=== PATIENT | male | born 1955 | race African-American/Black ===

== ENCOUNTER 2018-04-08 05:06 | Observation (INO) | payer OTHER ==
[~2018-04-08] VITALS: Ht 175.3 cm; Wt 90.3 kg
[2018-04-08] MEDS ORDERED: LISINOPRIL10 M1 PO (05:57)
[2018-04-08] MEDS ORDERED: ATORVASTATIN CA40 M1 PO (05:57)
[2018-04-08] MEDS ORDERED: GLIMEPIRIDE2 MG PO (05:57)
[2018-04-08] MEDS ORDERED: METFORMIN HCL500 M3 PO (05:57)
--- NOTE | 2018-04-08 06:12 | ED GI/GU/ABDOMINAL COMPLAINT ---
History of Present Illness General Chief Complaint: General Adult Stated Complaint: "SWALLOWED SOMTHING DIDNT GO DOWN RIGHT ABD PAIN" Source: patient Exam Limitations: no limitations Vital Signs & Intake/Output Vital Signs & Intake/Output Vital Signs Date Time Temp Pulse Resp B/P B/P Pulse O2 O2 Flow FiO2 Mean Ox Delivery Rate 04/08 838 97.7 64 20 110/71 99 Room Air 04/08 0623 98.3 66 18 123/71 98 Room Air 04/08 0525 98.2 84 18 109/76 99 Room Air Allergies Coded Allergies: No Known Allergies (04/08/18) Reconcile Medications Atorvastatin Calcium 40 MG TABLET 1 TAB PO DAILY HIGH CHOLESTEROL (Reported) Glimepiride 2 MG TABLET 1 TAB PO DAILY DIABETES (Reported) Lisinopril 10 MG TABLET 1 TAB PO DAILY HYPERTENSION (Reported) Metformin HCl 500 MG TABLET 1 TAB PO BID DIABETES (Reported) Triage Note: PT COMING IN FROM HOME C/O LLQ ABD PAIN. PT STATES HE WAS EATING BREAKFAST MONDAY MORNING AND HE FELT LIKE HE SWALLOWED METAL. PT STATES A COUPLE HOURS AFTER HE ATE BREAKFAST HE STARTED TO HAVE LLQ PAIN. PT ATE GRITS, EGGS, ALMANZA, AND TOAST FOR BREAKFAST. PT DENIES N/V/D. PT DENIES ANY OTHER COMPLAINTS. Triage Nurses Notes Reviewed? yes HPI: Patient presents for evaluation of left-sided abdominal pain that began after swallowing grits yesterday morning. Patient states he felt something "like metal" going down. His pain began about 2 hours after eating. Since then he has had an intermittent sharp pain at a 2-3/10 in intensity. There has been no associated fever, cold symptoms, vomiting, diarrhea or dysuria. Patient states he had one very brief transient episode of "whole body aches" Monday night but none since. He denies alcohol use. Patient denies abdominal pain currently. (Tonya MONGE,Jorge Gillis) Past History Travel History Traveled to [place] past 21 day No Medical History Any Pertinent Medical History? see below for history Cardiovascular: hypertension, hyperlipidemia Endocrine: diabetes Surgical History Surgical History: non-contributory Psychosocial History What is your primary language Kyrgyz Tobacco Use: Quit >30 days ago Family History Hx Contributory? No (Jorge Castaneda MD) Review of Systems Review of Systems Constitutional: Reports: no symptoms. EENTM: Reports: no symptoms. Respiratory: Reports: no symptoms. Cardiovascular: Reports: no symptoms. GI: Reports: see HPI. Genitourinary: Reports: no symptoms. Musculoskeletal: Reports: no symptoms. Skin: Reports: no symptoms. Neurological/Psychological: Reports: no symptoms. Hematologic/Endocrine: Reports: no symptoms. Immunologic/Allergic: Reports: no symptoms. All Other Systems: Reviewed and Negative (Tonya MONGE,Jorge Gillis) Physical Exam Physical Exam Gastrointestinal: SEE BELOW Comments: Gen.: Well-nourished, well-developed, no acute respiratory distress. Head: Normocephalic, atraumatic. Eyes: Normal inspection bilaterally Ears: Normal inspection bilaterally Nose: Normal inspection Throat/mouth : Moist mucosa Neck: Supple, full range of motion, no goiter Heart: Regular rate and rhythm, no murmurs rubs or gallops Lungs: Clear to auscultation bilaterally with normal air entry Chest: Nontender Back: Normal range of motion, no CVAT on the left side Abdomen: Soft, nontender, nondistended, normal bowel sounds Extremities: Normal range of motion grossly, equal radial pulses, no cyanosis clubbing or edema Neurologic: Cranial nerves grossly intact, speech is clear Skin: warm and dry Psychiatric: Calm, cooperative, no apparent delusions or hallucinations Core Measures ACS in differential dx? No Sepsis Present: No Sepsis Focused Exam Completed? No (Tonya MONGE,Jorge Gillis) Progress Differential Diagnosis: bowel obstruction, diverticulitis, gastritis, PUD/GERD, perforated viscous, ingested foreign body Plan of Care: Orders Procedure Date/time Status Nothing by Mouth 04/08 L Active URINALYSIS 04/08 612 Complete LIPASE 04/08 06 Complete COMPREHENSIVE METABOLIC PANEL 04/08 612 Complete CBC WITHOUT DIFFERENTIAL 04/08 612 Complete Current Medications Sig/Jeremiah Start time Last Medication Dose Stop Time Status Admin Sodium Chloride 1,000 ML Q6H 04/08 1030 AC (Normal Saline 0.9%) Laboratory Tests 04/08/18 0624: Urinalysis LIGHT H, Urine Color YEL, Urine Clarity CLEAR, Urine pH 6.0, Ur Specific [employer] >= 1.030, Urine Protein 30 H, Urine Ketones TRACE H, Urine Nitrite NEG, Urine Bilirubin NEG, Urine Urobilinogen 1.0, Ur Leukocyte Esterase NEG, Ur Microscopic SEDIMENT EXAMINED, Urine RBC 5-10 H, Urine WBC 3-5 H, Ur Epithelial Cells FEW, Urine Bacteria MANY H, Urine Mucus MANY H, Urine Hemoglobin TRACE-INTACT H, Urine Glucose 100 H 04/08/18 0620: Anion Gap 17 H, Estimated GFR 56 L, BUN/Creatinine Ratio 22.3, Glucose 119 H, Calcium 10.0, Total Bilirubin 1.0, AST 19, ALT 31, Alkaline Phosphatase 52, Total Protein 8.0, Albumin 4.4, Globulin 3.6, Albumin/Globulin Ratio 1.2, Lipase 133, CBC w Diff NO MAN DIFF REQ, RBC 4.18 L, MCV 96.0 H, MCH 32.1 H, MCHC 33.4, RDW 13.1, MPV 8.7, Gran % 64.3, Lymphocytes % 27.5, Monocytes % 6.5, Eosinophils % 1.3, Basophils % 0.4, Absolute Granulocytes 4.2, Absolute Lymphocytes 1.8, Absolute Monocytes 0.4, Absolute Eosinophils 0.1, Absolute Basophils 0 Initial ED EKG: none Comments: 04/08/2018 7:15:31 AM 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 (Tonya MONGE,Jorge Gillis) Comments: 5577 CT scan report discussed with the radiologist. He tells me that the patient has a jejunal metallic foreign body. Since the patient has pain at the site we will get a surgical consult. There were no obvious signs of perforation at this moment. 0852 examination of the patient shows left lower quadrant tenderness with a sharp foreign body seen on CT scan. I have made surgical POA about the case. Pending for the surgeon to call back. The patient will need surgical admission. 1027 surgery to accept the patient for observation. Patient will be kept n.p.o. (Mychal Franco MD) Departure Departure Disposition: STILL A PATIENT Condition: Stable Referrals: Bruce Rosales MD (PCP/Family) Departure Forms: Customer Survey General Discharge Information (Jorge Castaneda MD) Departure Clinical Impression Primary Impression: Abdominal pain Secondary Impressions: Foreign body (Mychal Franco MD)
[2018-04-08 06:30] LABS: ABSOLUTE BASOPHIL COUNT 0 /CUMM (0.0-0.2); ABSOLUTE EOSINOPHIL COUNT 0.1 /CUMM (0.0-0.7); ABSOLUTE GRANULOCYTE CT 4.2 /CUMM (1.4-6.5); ABSOLUTE LYMPH COUNT 1.8 /CUMM (1.2-3.4); ABSOLUTE MONOCYTE COUNT 0.4 /CUMM (0.10-0.60); BASOPHIL % 0.4 % (0.0-2.0); EOSINOPHIL % 1.3 % (0-5); GRANULOCYTE % 64.3 % (42.2-75.2); HEMATOCRIT 40.1 % (42-52); MEAN CORPUSCULAR HGB 32.1 PG (27.0-31.0); MEAN CORPUSCULAR HGB CONC 33.4 G/DL (33.0-37.0); MEAN PLATELET VOLUME 8.7 FL (7.4-10.4); PLATELET COUNT 205 /CUMM (130-400); RBC DISTRIBUTION WIDTH 13.1 % (11.5-14.5); RED BLOOD CELL CT 4.18 /CUMM (4.70-6.10); WHITE BLOOD CELL COUNT 6.5 /CUMM (4.8-10.8)
--- NOTE | 2018-04-08 08:23 | CT SCAN REPORT ---
EXAMINATION: CT ABDOMEN AND PELVIS WITHOUT CONTRAST CLINICAL INFORMATION: Swallowed something that felt like metal. Left upper quadrant abdominal pain. COMPARISON: None TECHNIQUE: Multidetector volumetric imaging was performed from the superior aspect of the liver through the pubic symphysis. Sagittal and coronal reformatted images were obtained on the technologist's workstation. DLP: 472 mGy-cm FINDINGS: LUNG BASES: A 4 mm pulmonary nodule is seen in the right middle lobe. Lung bases are otherwise clear. Mild gynecomastia. LIVER, GALLBLADDER, AND BILIARY TREE: A hypodense mass is seen at the dome of the right lobe of liver measuring 2.2 x 3.2 x 2.6 cm (CC by AP by TR). The gallbladder is partly contracted and unremarkable. PANCREAS: Unremarkable. SPLEEN: The spleen is not enlarged but is lobular and a hypodense lesion is seen in the spleen measuring 1.7 cm. ADRENAL GLANDS: Unremarkable. KIDNEYS AND URETERS: Multiple hypodense and hyperdense right renal lesions are seen in the parenchyma as well as located exophytically. A hyperdense lesion at the upper pole measures 1.2 cm and at the lower pole measures 2.4 cm in maximum size. These cannot be further characterized on this noncontrast study. Both kidneys have good cortical thickness without calculus or hydronephrosis. BLADDER: Unremarkable. GASTROINTESTINAL TRACT: A thin needle shaped metallic density is seen extending from one wall to the other wall of a jejunal loop in the left mid abdomen measuring 2.6 cm in length and less than 1 mm in width . The needle comes close to the serosal surface. There is no focal wall thickening or extraluminal gas/inflammatory changes. No associated pneumoperitoneum. No bowel obstruction. Moderate stool is seen in the colon. There are scattered high density punctate foci intermixed with stool also presumably ingested but incidental. The appendix is normal. ABDOMINAL WALL: Small fat-containing umbilical hernia is seen. LYMPH NODES: Normal. VASCULAR: Scattered aortic calcifications. No aneurysm. PELVIC VISCERA: The prostate is significantly enlarged measuring approximately 5.4 x 6.1 x 7.8 cm (CC by AP by TR dimensions) with a volume of approximately 130 mL the prostate is also slightly lobular on the right side with asymmetry of the right seminal vesicle compared to the left. OSSEOUS STRUCTURES: Unremarkable. IMPRESSION: 1. Thin metallic needle shaped structure is seen spanning within the lumen of mid jejunum extending from wall to wall. The needle does appear to be extend close to the serosal surface and in the presence of pain, surgical consultation is suggested. At this time there is no extraluminal gas or fluid seen. 2. Right middle lobe 4 mm pulmonary nodule. According to the updated 2017 Fleischner Society recommendations, the advised follow-up imaging for solid nodules < 6 mm is no routine follow-up for low-risk patients an optional CT at 12 months in high-risk patients. 3. Nonspecific hypodense lesions in the liver and spleen and hyper and hypodense lesions in the right kidney should be electively evaluated with a dynamic MRI of the abdomen. 4. Significant prostatomegaly with asymmetric lobulation on the right side and prominence of the right seminal vesicle, recommend elective evaluation. The findings were communicated to Dr. Franco.
--- NOTE | 2018-04-08 10:45 | History & Physical ---
See Addendum Kassi Link 04/08/18 1032: General Information and HPI MD Statement: I have seen and personally examined REY HAILE and documented this H&P. The patient is a 62 year old M who presented with a patient stated chief complaint of abdominal pain after ingesting a foreign object. Source of Information: patient Exam Limitations: no limitations History of Present Illness: Pt is a 62 yo male that presents this morning with abdominal pain. The pt states that yesterday morning he was eating instant grits with eggs and cedillo when he noticed something he had swallowed was sharp. He came to the ED this morning because of worsening abdominal pain. The pain comes and goes. At the time of exam, the pt was not in any pain. The pain in sharp in nature and does not radiate. He is unaware of what he may have swallowed. Pt denies n/v, sob, fever, chills. Allergies/Medications Allergies: Coded Allergies: No Known Allergies (04/08/18) Home Med list Atorvastatin Calcium 40 MG TABLET 1 TAB PO DAILY HIGH CHOLESTEROL (Reported) Glimepiride 2 MG TABLET 1 TAB PO DAILY DIABETES (Reported) Lisinopril 10 MG TABLET 1 TAB PO DAILY HYPERTENSION (Reported) Metformin HCl 500 MG TABLET 1 TAB PO BID DIABETES (Reported) Past History Travel History Traveled to [place] past 21 day No Medical History Cardiovascular: hypertension, hyperlipidemia Endocrine: diabetes Surgical History Surgical History: none (surgery for renal cyst), non-contributory Past Family/Social History Psychosocial History Other Social History: quit smoking in the . No daily alcohol use. Exam & Diagnostic Data Last 24 Hrs of Vital Signs/I&O Vital Signs Date Time Temp Pulse Resp B/P B/P Pulse O2 O2 Flow FiO2 Mean Ox Delivery Rate 04/08 0838 97.7 64 20 110/71 99 Room Air 04/08 0623 98.3 66 18 123/71 98 Room Air 04/08 0525 98.2 84 18 109/76 99 Room Air Intake & Output 04/08 1600 04/08 0800 04/08 0000 Intake Total 0 Output Total Balance 0 Intake, Oral 0 Patient 199 lb Weight Weight Reported by Patient Measurement Method Physical Exam General Appearance Alert, Oriented X3, Cooperative, No Acute Distress Skin Temp/Moisture Exam: Warm/Dry HEENT PERRLA, Mucous Membr. moist/pink (no teeth, wears dentures) Neck Supple Cardiovascular Regular Rate, Normal S1, Normal S2 Lungs Clear to Auscultation Abdomen Normal Bowel Sounds, Soft, No Tenderness Last 24 Hrs of Labs/Christofer: Laboratory Tests 04/08/18 0624: Urinalysis LIGHT H, Urine Color YEL, Urine Clarity CLEAR, Urine pH 6.0, Ur Specific [place] >= 1.030, Urine Protein 30 H, Urine Ketones TRACE H, Urine Nitrite NEG, Urine Bilirubin NEG, Urine Urobilinogen 1.0, Ur Leukocyte Esterase NEG, Ur Microscopic SEDIMENT EXAMINED, Urine RBC 5-10 H, Urine WBC 3-5 H, Ur Epithelial Cells FEW, Urine Bacteria MANY H, Urine Mucus MANY H, Urine Hemoglobin TRACE-INTACT H, Urine Glucose 100 H 04/08/18 0620: Anion Gap 17 H, Estimated GFR 56 L, BUN/Creatinine Ratio 22.3, Glucose 119 H, Calcium 10.0, Total Bilirubin 1.0, AST 19, ALT 31, Alkaline Phosphatase 52, Total Protein 8.0, Albumin 4.4, Globulin 3.6, Albumin/Globulin Ratio 1.2, Lipase 133, CBC w Diff NO MAN DIFF REQ, RBC 4.18 L, MCV 96.0 H, MCH 32.1 H, MCHC 33.4, RDW 13.1, MPV 8.7, Gran % 64.3, Lymphocytes % 27.5, Monocytes % 6.5, Eosinophils % 1.3, Basophils % 0.4, Absolute Granulocytes 4.2, Absolute Lymphocytes 1.8, Absolute Monocytes 0.4, Absolute Eosinophils 0.1, Absolute Basophils 0 Diagnostic Data Other Results CT of Abdomen showed: Thin metallic needle shaped structure is seen spanning within the lumen of mid jejunum extending from wall to wall. The needle does appear to be extend close to the serosal surface and in the presence of pain, surgical consultation is suggested. At this time there is no extraluminal gas or fluid seen. Assessment/Plan Assessment: Pt is a 62 male with a PMHx of htn, hyperlipidemia, and DM that presents with ingestion of foregin body and abdominal pain. As Ranked By This Provider Problem List: 1. Foreign body 2. Abdominal pain Core Measures/Misc (05/28) Acute Coronary Syndrome ACS Diagnosis: No Congestive Heart Failure Congestive Heart Failure Diagnosis No Cerebrovascular Accident CVA/TIA Diagnosis: No VTE (View Protocol) VTE Risk Factors Age>40 Sepsis (View protocol) Sepsis Present: No If YES complete Sepsis Event Note If YES complete Sepsis Event Note Newton Veliz 04/08/18 1240: Review of Systems Review of Systems Constitutional: Denies: no symptoms. Exam & Diagnostic Data Last 24 Hrs of Vital Signs/I&O Vital Signs Date Time Temp Pulse Resp B/P B/P Pulse O2 O2 Flow FiO2 Mean Ox Delivery Rate 04/08 1042 97.9 61 20 113/71 99 Room Air 04/08 0838 97.7 64 20 110/71 99 Room Air 04/08 0623 98.3 66 18 123/71 98 Room Air 04/08 0525 98.2 84 18 109/76 99 Room Air Intake & Output 04/08 1600 04/08 0800 04/08 0000 Intake Total 0 Output Total Balance 0 Intake, Oral 0 Patient 199 lb Weight Weight Reported by Patient Measurement Method Core Measures/Misc (05/28) VTE (View Protocol) No Mechanical VTE Prophylaxis d/t N/A MechProphylax Ordered No VTE Pharm Prophylaxis d/t LowRisk-No Interven Req'd Sepsis (View protocol) If YES complete Sepsis Event Note If YES complete Sepsis Event Note Resident Review Statement Other Findings: Patient seen and evaluated with PATuan. Agree with history and physical above. In short, this is a 62 yo M w/ PMHx of HTN, HLD, and DM that presents to [facility] after swolling a foreign body while eating his breakfast this morning. Patient was in his usual state of health until this morning when he was eating grits and scramble eggs he felt as though he swolled something. This was followed by immediate abdominal pain. He is unaware of what object he swolled. Of note, patient has dentues and has no teeth. He was where his dentures this mroning. His abdominal pain continued and worsened, therefore he came to the ED for evaluation. In the Ed a CT was obtained and shows a metallic needle shaped structure spanning the lumen of the mid jejunum. Upon my evaluation he does not have any abdominal pain, but states "it comes and goes". Therefore, surgery consult was obtained. After discussion with Dr. Schwartz, patient will be admitted to his service for observation *Case discussed with Dr. Schwartz - Admit for obs - NPO - Repeat abdominal xray at 6PM tonight - Serial abdominal exams
[2018-04-08 12:10] VITALS: BP 120/70
--- NOTE | 2018-04-08 12:44 | PN- General Surgery ---
Surgical Brief Attending Note Brief Attending Note: Patient seen and examined, full H and P to follow. Patient thinks ingested something yesterday, has had on and off abd pain (every couple of hours), no N/V , currently comfortable. AVSS. Abd- soft. Labs ok. CT scan - Foreign body in mid jejunum, sitting transversly and spanning the bowel. Conservative management for now, NPO/IVF, AXR later today and tomorrow to eval if the foreign body progressed, if worsening exam may need surgical intervention. D/W patient who is in agreement.
[2018-04-08 15:52] VITALS: BP 120/80
--- NOTE | 2018-04-08 18:29 | RADIOLOGY REPORT ---
EXAMINATION: XR ABDOMEN CLINICAL INDICATION: Swallowed foreign body COMPARISON: None TECHNIQUE: AP view of the abdomen. FINDINGS: Study is incomplete, the RIGHT lateral portion of the abdomen is excluded from the film margin. The bowel gas pattern is normal with no evidence of ileus or obstruction. No unusual soft tissue calcifications are noted. The bones are unremarkable. In the included portion show no radiodense foreign body. IMPRESSION: Incomplete study, the lateral aspect of the RIGHT side of the abdomen is excluded from the film margin. Consider repeat x-ray. No radiopaque foreign body in the included portion. No obstruction.
[2018-04-08 22:12] VITALS: BP 112/68
[2018-04-09 06:04] VITALS: BP 122/68
--- NOTE | 2018-04-09 07:20 | PN- Student ---
Kassi Link 04/09/18 0713: Subjective Subjective: No acute overnight events. Pt was not in any pain yesterday afternoon or overnight. The last time the pt requested pain medications was around 1245 yesterday. He is getting oob without pain, urinating and passing flatus but no BM since admission. Pt denies n/v, sob, cp. Objective Results Results: Vital Signs Date Time Temp Pulse Resp B/P B/P Pulse O2 O2 Flow FiO2 Mean Ox Delivery Rate 04/09 0604 97.7 58 18 122/68 100 Room Air 04/08 2212 97.7 52 18 112/68 98 04/08 1600 Room Air 04/08 1552 97.8 54 18 120/80 96 04/08 1235 Room Air 04/08 1210 97.7 51 18 120/70 98 04/08 1042 97.9 61 20 113/71 99 Room Air 04/08 0838 97.7 64 20 110/71 99 Room Air 04/08 0623 98.3 66 18 123/71 98 Room Air 04/08 0525 98.2 84 18 109/76 99 Room Air Last 24 Hours I&Os 04/09 0800 04/09 0000 04/08 1600 Intake Total 800 800 900 Output Total 0 Balance 800 800 900 Intake, IV 800 800 900 Intake, Oral 0 Number 0 Bowel Movements Output, Urine 0 Patient 199 lb Weight Weight Reported by Patient Measurement Method Orders Procedure Date/time Status [id number] [id number] 04/09 0600 Active CBC WITHOUT DIFFERENTIAL 04/09 0600 Active BASIC ELECTROLYTES PLUS BUN&CR 04/09 0600 Active Nothing by Mouth 04/08 L Complete Nothing by Mouth 04/08 D Active Pathway - chart 04/08 1238 Active Weight 04/08 1233 Complete Vital Signs 04/08 1233 Active Teach/Educate 04/08 1233 Active Pain Treatment and Response 04/08 1233 Active Nutritional Intake, Monitor 04/08 1233 Active Isolation 04/08 1233 Active Intake & Output 04/08 1233 Active Patient Care Conference 04/08 1233 Active Activity/Ambulation 04/08 1233 Active Patient Data 04/08 1029 Active Code Status 04/[address] in observation 04/08 1028 Active ED Holding Orders 04/08 1028 Active Code Status 04/08 1028 Complete URINALYSIS 04/08 0612 Complete LIPASE 04/08 0612 Complete COMPREHENSIVE METABOLIC PANEL 04/08 06 Complete CBC WITHOUT DIFFERENTIAL 04/08 612 Complete Intake & Output 04/08 0554 Complete VTE Mechanical Prophylaxis 04/08 UNK Active Vital Signs 04/08 UNK Complete Intake & Output 04/08 UNK Complete FingerStick- Glucose 04/08 UNK Active Laboratory Tests 04/08/18 0624: Urinalysis LIGHT H, Urine Color YEL, Urine Clarity CLEAR, Urine pH 6.0, Ur Specific [place] >= 1.030, Urine Protein 30 H, Urine Ketones TRACE H, Urine Nitrite NEG, Urine Bilirubin NEG, Urine Urobilinogen 1.0, Ur Leukocyte Esterase NEG, Ur Microscopic SEDIMENT EXAMINED, Urine RBC 5-10 H, Urine WBC 3-5 H, Ur Epithelial Cells FEW, Urine Bacteria MANY H, Urine Mucus MANY H, Urine Hemoglobin TRACE-INTACT H, Urine Glucose 100 H 04/08/18 0620: Anion Gap 17 H, Estimated GFR 56 L, BUN/Creatinine Ratio 22.3, Glucose 119 H, Calcium 10.0, Total Bilirubin 1.0, AST 19, ALT 31, Alkaline Phosphatase 52, Total Protein 8.0, Albumin 4.4, Globulin 3.6, Albumin/Globulin Ratio 1.2, Lipase 133, CBC w Diff NO MAN DIFF REQ, RBC 4.18 L, MCV 96.0 H, MCH 32.1 H, MCHC 33.4, RDW 13.1, MPV 8.7, Gran % 64.3, Lymphocytes % 27.5, Monocytes % 6.5, Eosinophils % 1.3, Basophils % 0.4, Absolute Granulocytes 4.2, Absolute Lymphocytes 1.8, Absolute Monocytes 0.4, Absolute Eosinophils 0.1, Absolute Basophils 0 Physical Exam Gen:O&Ax3, sitting up in bed comfortably, in no apparent distress Lungs: CTA Heart: S1 and S2 heard. Slow rate, regular rhythm Abd: soft, nt/nd, normoactive bs Ext: no edema, skin is warm and dry Assessment/Plan Assessment: Pt is a 62 male with a PMHx of htn, hyperlipidemia, and DM that presented yesterday to the ED with ingestion of foreign body on 04/07 with abdominal pain. Plan: -repeat AXR to see if foreign body has progressed this morning as yesterday's film was incomplete -conservative management for this morning, pending AXR results -remain NPO -c/w IV fluids -Heparin sq for dvt ppx -Tylenol prn for pain -No león, oob and voiding well -Encourage ambualtion -zofran prn for nausea -c/w home medications Signed SHALONDA Garcia Sara 04/09/18 5253: Assessment/Plan Assessment: Agree with student assessment. Plan to obtain multiview abd xray to further assess location of fb. Continue serial abdominal exams. Will discuss with Tres Lugo DO 04/09/18 3817: Attending MD Review Statement Attending Sign Off Attending Cosign Statement: I have: examined this patient, reviewed [employer] EMR data, personally reviewd images, discussd w/resident/PA/MACHINE SAND MIXER, discussed mgmt plan w/pt, agreed w/resident/ PA/MACHINE SAND MIXER. Other Findings: Patient seen and examined, agree with above. Doing well, no pain. AVSS UO ok. Abd-soft NT. Labs ok. AXR - nml, can not see the foreign body. Diet, if tolerates with no pain then plan on D/C tomorrow. I did explain that it may cause a problem down the line and require surgery but at this time no need to keep in the hospital.
[2018-04-09 09:22] LABS: ABSOLUTE BASOPHIL COUNT 0 /CUMM (0.0-0.2); ABSOLUTE EOSINOPHIL COUNT 0.1 /CUMM (0.0-0.7); ABSOLUTE GRANULOCYTE CT 2.2 /CUMM (1.4-6.5); ABSOLUTE LYMPH COUNT 1.3 /CUMM (1.2-3.4); ABSOLUTE MONOCYTE COUNT 0.3 /CUMM (0.10-0.60); BASOPHIL % 0.6 % (0.0-2.0); GRANULOCYTE % 56.3 % (42.2-75.2); MEAN CORPUSCULAR HGB 31.7 PG (27.0-31.0); MEAN CORPUSCULAR HGB CONC 33.1 G/DL (33.0-37.0); MEAN CORPUSCULAR VOLUME 95.8 FL (80.0-94.0); MEAN PLATELET VOLUME 9.4 FL (7.4-10.4); PLATELET COUNT 197 /CUMM (130-400); RBC DISTRIBUTION WIDTH 13.3 % (11.5-14.5); RED BLOOD CELL CT 4.07 /CUMM (4.70-6.10); WHITE BLOOD CELL COUNT 3.9 /CUMM (4.8-10.8)
--- NOTE | 2018-04-09 10:27 | RADIOLOGY REPORT ---
EXAMINATION: XR ABDOMEN MULTIPLE VIEWS CLINICAL INDICATION: Abdominal pain. Presumptive diagnosis of foreign body. COMPARISON: [facility] dated 04/08/[address] scan of the abdomen and pelvis dated 04/08/2018. TECHNIQUE: 2 views of the abdomen. FINDINGS: There is no evidence of free air or obstruction. No abnormal radiopaque foreign body is seen. Small and large bowel loops are decompressed. There is a large amount of fecal material throughout the colon. Lung bases are clear. There is moderate degenerative change in both hip joints with superior joint space narrowing, bulky spur formation and cystic changes noted. IMPRESSION: 1. The CT demonstrated fine linear metallic foreign body is not appreciated on plain film. 2. No evidence of bowel obstruction or perforation.
[2018-04-09 14:19] VITALS: BP 132/60
[2018-04-09 21:39] VITALS: BP 108/64
[2018-04-10 06:20] VITALS: BP 124/68
--- NOTE | 2018-04-10 07:18 | PN- Student ---
Kassi Link 04/10/18 0707: Subjective Subjective: No acute overnight events. No abdominal pain. Voiding ok. Passing flatus, no BM since monday. Pt had been NPO, was advanced to clears yesterday and will start on consistent carb diet this morning. Denies cp,sob, n/v. Objective Objective: Vital Signs Date Time Temp Pulse Resp B/P B/P Pulse O2 O2 Flow FiO2 Mean Ox Delivery Rate 04/09 2139 97.8 64 20 108/64 99 04/09 1419 97.4 60 20 132/60 100 Room Air 04/09 0823 58 122/68 04/09 0604 97.7 58 18 122/68 100 Room Air 04/08 2212 97.7 52 18 112/68 98 04/08 1600 Room Air 04/08 1552 97.8 54 18 120/80 96 04/08 1235 Room Air 04/08 1210 97.7 51 18 120/70 98 04/08 1042 97.9 61 20 113/71 99 Room Air 04/08 0838 97.7 64 20 110/71 99 Room Air 04/08 0623 98.3 66 18 123/71 98 Room Air 04/08 0525 98.2 84 18 109/76 99 Room Air Last 24 Hours I&Os 04/10 0800 04/10 0000 04/09 1600 Intake Total 480 1050 1040 Output Total Balance 480 1050 1040 Intake, IV 450 800 Intake, Oral 480 600 240 Patient 199 lb Weight Laboratory Tests 04/09/18 0800: Anion Gap 12, Estimated GFR > 60, BUN/Creatinine Ratio 18.0, CBC w Diff NO MAN DIFF REQ, RBC 4.07 L, MCV 95.8 H, MCH 31.7 H, MCHC 33.1, RDW 13.3, MPV 9.4, Gran % 56.3, Lymphocytes % 34.1, Monocytes % 7.0, Eosinophils % 2.0, Basophils % 0.6, Absolute Granulocytes 2.2, Absolute Lymphocytes 1.3, Absolute Monocytes 0.3 , Absolute Eosinophils 0.1, Absolute Basophils 0 Orders Procedure Date/time Status Full Liquid Diet 04/09 L Complete Consistent Carbohydrate 3 04/09 D Active CBC WITHOUT DIFFERENTIAL 04/09 600 Complete BASIC ELECTROLYTES PLUS BUN&CR 04/09 600 Complete Nothing by Mouth 04/08 L Complete Nothing by Mouth 04/08 D Complete Pathway - chart 04/08 1238 Active Weight 04/08 1233 Complete Vital Signs 04/08 1233 Active Teach/Educate 04/08 1233 Active Pain Treatment and Response 04/08 1233 Active Nutritional Intake, Monitor 04/08 1233 Active Isolation 04/08 1233 Active Intake & Output 04/08 1233 Active Patient Care Conference 04/08 1233 Active Activity/Ambulation 04/08 1233 Active Patient Data 04/08 1029 Active Code Status 04/[address] in observation 04/08 1028 Active ED Holding Orders 04/08 1028 Active Code Status 04/08 1028 Complete URINALYSIS 04/08 0612 Complete LIPASE 04/08 0612 Complete COMPREHENSIVE METABOLIC PANEL 04/08 0612 Complete CBC WITHOUT DIFFERENTIAL 04/08 0612 Complete Intake & Output 04/08 0554 Complete VTE Mechanical Prophylaxis 04/08 UNK Active Vital Signs 04/08 UNK Complete Intake & Output 04/08 UNK Complete FingerStick- Glucose 04/08 UNK Active Gen: O&Ax3, sitting up in bed, comfortable, appears in no distress Lungs: CTA Heart: s1 and s2 normal RRR Abd: soft, hyperactive bs throughout, nontender, no gaurding, no rigidity Ext: skin warm/dry, no edema Results Results: Laboratory Tests 04/09/18 0800: Anion Gap 12, Estimated GFR > 60, BUN/Creatinine Ratio 18.0, CBC w Diff NO MAN DIFF REQ, RBC 4.07 L, MCV 95.8 H, MCH 31.7 H, MCHC 33.1, RDW 13.3, MPV 9.4, Gran % 56.3, Lymphocytes % 34.1, Monocytes % 7.0, Eosinophils % 2.0, Basophils % 0.6, Absolute Granulocytes 2.2, Absolute Lymphocytes 1.3, Absolute Monocytes 0.3 , Absolute Eosinophils 0.1, Absolute Basophils 0 04/08/18 0624: Urinalysis LIGHT H, Urine Color YEL, Urine Clarity CLEAR, Urine pH 6.0, Ur Specific [place] >= 1.030, Urine Protein 30 H, Urine Ketones TRACE H, Urine Nitrite NEG, Urine Bilirubin NEG, Urine Urobilinogen 1.0, Ur Leukocyte Esterase NEG, Ur Microscopic SEDIMENT EXAMINED, Urine RBC 5-10 H, Urine WBC 3-5 H, Ur Epithelial Cells FEW, Urine Bacteria MANY H, Urine Mucus MANY H, Urine Hemoglobin TRACE-INTACT H, Urine Glucose 100 H 04/08/18 0620: Anion Gap 17 H, Estimated GFR 56 L, BUN/Creatinine Ratio 22.3, Glucose 119 H, Calcium 10.0, Total Bilirubin 1.0, AST 19, ALT 31, Alkaline Phosphatase 52, Total Protein 8.0, Albumin 4.4, Globulin 3.6, Albumin/Globulin Ratio 1.2, Lipase 133, CBC w Diff NO MAN DIFF REQ, RBC 4.18 L, MCV 96.0 H, MCH 32.1 H, MCHC 33.4, RDW 13.1, MPV 8.7, Gran % 64.3, Lymphocytes % 27.5, Monocytes % 6.5, Eosinophils % 1.3, Basophils % 0.4, Absolute Granulocytes 4.2, Absolute Lymphocytes 1.8, Absolute Monocytes 0.4, Absolute Eosinophils 0.1, Absolute Basophils 0 Assessment/Plan Assessment: Pt is a 62 male with a PMHx of htn, hyperlipidemia, and DM that presented with ingestion of foregin body and abdominal pain on 04/07. Plan: -AXR done yesterday did not show foreign body, no signs of obstruction or perforation on plain film -Voiding adequately, passing flatus, no BM -See how pt tolerates breakfast this morning -If no n/v/abd pain with breakfast pt should be ok for discharge today -Pt will need outpatient follow up and was informed by surgeon of possibility of needing surgery in future -Encourage oob, ambulation, PO fluids intake -Heparin sq for dvt ppx -c/w home medications, PO tylenol prn for pain upon discharge Signed SHALONDA Garcia Michael 04/10/18 1252: Resident Review Statement Resident Statement: examined this patient Other Findings: AGREE WITH ABOVE DC TODAY IF TOLERATES BREAKFAST. CONCERNING S/S DW PT, TO CALL OR PRESENT TO ER WITH ANY CONCERNS. KIM KIM
--- NOTE | 2018-04-10 07:44 | Patient Discharge Instructions ---
Discharge Instructions General Discharge Information You were seen/treated for: Ingestion of metallic foreign body You had these procedures: None Watch for these problems: Watch for worsening abdominal pain, rectal pain, nausea, vomiting, fever, vomiting blood, and the stool. Monitor your stool for any metallic foreign body Special Instructions: Call the surgeon or present to the ER with any of the above symptoms. This may require surgery to be removed if it does not pass on its own Diet Continue normal diet: Yes Activity Full Activity/No Limits: Yes Acute Coronary Syndrome Inclusion Criteria At DC or during hospital stay patient has or had the following: ACS DIAGNOSIS No Discharge Core Measures Meds if any: Prescribed or Continued at Discharge Meds if any: NOT Prescribed or Continued at Discharge Congestive Heart Failure Inclusion Criteria At DC or during hospital stay patient has or had the following: CHF DIAGNOSIS No Discharge Core Measures Meds if any: Prescribed or Continued at Discharge Meds if any: NOT Prescribed or Continued at Discharge Cerebrovascular accident Inclusion Criteria At DC or during hospital stay patient has or had the following: CVA/TIA Diagnosis No Discharge Core Measures Meds if any: Prescribed or Continued at Discharge Meds if any: NOT Prescribed or Continued at Discharge Venous thromboembolism Inclusion Criteria VTE Diagnosis No VTE Type NONE VTE Confirmed by (Test) NONE Discharge Core Measures - Per Current guidelines, there needs to be overlap - treatment for the first 5 days of Warfarin therapy. - If discharged on Warfarin prior to 5 days of - overlap therapy, the patient will need to be - assessed for post discharge needs including - *Post discharge parental anticoagulation - *Warfarin and/or parental anticoagulation education - *Follow up date to check INR post discharge At least 5 days overlap therapy as Inpatient No Meds if any: Prescribed or Continued at Discharge Note: Overlap Therapy is Warfarin and Anticoagulant Meds if any: NOT Prescribed or Continued at Discharge
--- NOTE | 2018-04-10 07:47 | Surg Short-stay <48hrs Dis Sum ---
Visit Information Visit Dates Admission Date: 04/08/18 Discharge Date: 04/10/18 Surgical Short Stay DC Summary Admission Diagnosis: Ingestion of metallic foreign body Final Diagnosis: Same Procedure(s): None Summary/Significant Findings: Patient was admitted through the emergency department after presenting there with abdominal pain after he swallowed a metallic foreign body on accident while eating. The foreign body was noted in the jejunum on CT scan. He was kept n.p.o. and his diet was slowly advanced as his symptoms waned. X-ray was performed and the foreign body was not seen, possibly not dense enough to be seen on x-ray and this could not be followed. Symptomatically, patient did well , having no symptoms, no pain, no nausea, no vomiting, no bloody bowel movements , tolerating a diet. He was discharged home in stable condition however he needs to monitor his stool and monitor his abdominal symptoms and presented to the ER or call the surgeon with any concerns. He understands and agrees with plan and was discharged home in stable condition Condition at Discharge: Good Discharge Disposition: home or self care Discharge instructions provided to patient/family: Yes Post discharge follow-up plan: As needed, as above
[2018-04-10 07:57] VITALS: BP 124/72
== END 2018-04-10 09:30 | disposition home health service (06) ==
LOC: ERH 05:06 → 2NA 10:28 → ERHI 10:28 → ENRESERV 11:30 → ENTRNSPT 11:52 → EDTRNSPTSTS 12:02 → EDTRNSPT 12:02 → 2NA 12:16 → CMPTRNSPT 12:16 → 2NA 12:16 → ENPENDDIS 04-10 08:27 → 2NA 04-10 09:30
PROVIDERS: Emergency Medicine; Physician Assistant Surgical
DX: T18.3XXA Foreign body in small intestine, initial encounter (principal); E11.9 Type 2 diabetes mellitus without complications; Z79.84 Long term (current) use of oral hypoglycemic drugs; I10 Essential (primary) hypertension; E78.5 Hyperlipidemia, unspecified; R10.9 Unspecified abdominal pain; X58.XXXA Exposure to other specified factors, initial encounter; Y92.009 Unspecified place in unspecified non-institutional (private) residence as the place of occurrence of the external cause
CPT/HCPCS: 36592; 74018; 74021; 74176; 81001; 82436; 96372; G0378; J1644; J2405; J7042